=== PATIENT | male | born 1955 | race Caucasian/White ===

== ENCOUNTER → 2024-06-03 | Outpatient (CLI) | payer MEDICARE, BC ==
[~2024-06-03] MED LIST: ACET325; CIPR500; DIAZ2 PO; IBUP200; MECL25 PO; PROM25 PO; RANI150 PO
[2024-06-03 18:06] LABS: U Amphetamine Screen Not Detected; U Barbituate Screen Not Detected; U Benzodiazapine Screen DETECTED; U Buprenorphine Screen Not Detected; U Cannabinoids Screen Not Detected; U Cocaine Screen Not Detected; U Methadone Screen Not Detected; U Methamphetamine Screen Not Detected; U Opiates Screen Not Detected; U Oxycodone Screen DETECTED; U Phencyclidine Screen Not Detected
[2024-06-08 18:41] LABS: 6-ACETYLMORPHINE, URN, QUANT <10 ng/mL; CODEINE, URN, QUANT <20 ng/mL; HYDROCODONE, URN, QUANT <20 ng/mL; HYDROMORPHONE, URN, QUANT <20 ng/mL; MORPHINE, URN, QUANT <20 ng/mL; NORHYDROCODONE, URN, QUANT <20 ng/mL; NOROXYCODONE, URN, QUANT >4000 ng/mL; NOROXYMORPHONE, URN, QUANT >1000 ng/mL; OXYCODONE, URN, QUANT 1443 ng/mL; OXYMORPHONE, URN, QUANT 118 ng/mL
[2024-06-08 21:32] LABS: 7-AMINOCLONAZEPAM, URN, QUANT <5 ng/mL; A-HYDROXYALPRAZOLAM, URN, QNT <5 ng/mL; A-HYDROXYMIDAZOLAM, URN, QNT <20 ng/mL; ALPRAZOLAM, URN, QUANT <5 ng/mL; CHLORDIAZEPOXIDE, URN, QUANT <20 ng/mL; CLONAZEPAM, URN, QUANT <5 ng/mL; DIAZEPAM, URN, QUANT <20 ng/mL; LORAZEPAM, URN, QUANT <20 ng/mL; MIDAZOLAM, URN, QUANT <20 ng/mL; NORDIAZEPAM, URN, QUANT <20 ng/mL; OXAZEPAM, URN, QUANT 93 ng/mL; TEMAZEPAM, URN, QUANT 2162 ng/mL
== END ==
LOC: LAB SHORT 15:55 → LAB 15:55
PROVIDERS: Physician Assistant
DX: M54.50 Low back pain, unspecified (principal); G89.4 Chronic pain syndrome
CPT/HCPCS: G0480; G0481